=== PATIENT | female | born 1965 | race Caucasian/White ===

== ENCOUNTER 2017-05-16 05:24 | Day surgery (SDC) | payer BC ==
[2017-05-16 06:09] VITALS: BP 145/77; BMI 27.8
[2017-05-16 07:49] LABS: HEMATOCRIT 41.6 % (36.0-48.0); HEMOGLOBIN 13.9 g/dL (12-16); MCH 29.4 pg (26.0-34.0); MCHC 33.4 g/dL (31.0-37.0); MCV 88.1 fL (80.0-100.0); MEAN PLATELET VOLUME 9.8 fL (7.4-10.4); RBC 4.72 10x6/uL (4.00-5.40); RDW 13.2 % (11.5-14.5); WBC 5.1 10x3/uL (4.8-10.8)
--- NOTE | 2017-05-16 09:36 | NUR ---
0930--IV DC'D, PT UP TO DRESS AT THIS TIME WITH 'S ASSISTANCE. KELLI RN
--- NOTE | 2017-05-16 16:16 | NUR ---
0945--DISCHARGE INSTRUCTIONS GIVEN, PT VERBALZIES UNDERSTANDING. PT OFF UNIT VIA RICARDO. KELLI TABOR
--- NOTE | 2017-05-30 13:09 | OP ---
PATIENT NAME: EPI ALFONSO MEDICAL RECORD: [id number] :65 LOCATION:D.OPS ADMISSION DATE: SURGEON: AIDEN KLINE DPM DATE OF OPERATION: 05/16/2017 PREOPERATIVE DIAGNOSIS: Hallux abductovalgus, left foot. POSTOPERATIVE DIAGNOSIS: Hallux abductovalgus, left foot. PROCEDURE: Xavier bunionectomy, left foot with 0.062-inch K-wire fixation. ANESTHESIA: Local with IV sedation. HEMOSTASIS: Left ankle tourniquet at 250 mmHg. PREOPERATIVE DETAILS: The patient was taken to the OR, placed on the operating table in a supine position. This was followed by induction of sedation and infiltration of local anesthetic, approximately 15 cc total around the first ray of the left foot. The left extremity was then prepped and draped in the usual aseptic technique followed by exsanguination of extremity and inflation of tourniquet. A 15 blade was used to create a 4-cm linear incision over the dorsal aspect of the first ray, extended to the base of proximal phalanx of the hallux. The incision was deepened down through subcutaneous tissue being sure to preserve all vital structures. Dissection was carried down to the first MPJ where an inverted L capsulotomy was performed. The medial capsular flap was reflected and the head of the first metatarsal was delivered. A sagittal saw was used to resect the medial eminence. Attention was directed to the first interspace where a lateral release was performed. Attention was redirected to the medial aspect of the head of the first metatarsal where a sagittal saw was used to create a V osteotomy through and through. The capital fragment was translocated laterally and fixated with a 0.062-inch K-wire. The pin was cut. The medial redundant shelf was resected with the sagittal saw. The wound was flushed. The first MPJ was repaired with 2-0 Vicryl, the subcutaneous tissue with 5-0 Vicryl, and then the skin was closed with 5-0 Prolene in a subcuticular technique followed by Dermabond. Adaptic, 4 x 4 and Conform were used to dress the wound followed by Coban. Tourniquet was deflated. POSTOPERATIVE DETAILS: The patient tolerated the procedure well and left the OR with vital signs stable and vascular status at preoperative levels. The patient was transported to recovery per anesthesia in stable condition. TRANSINT:[id number] Voice Confirmation ID: [id number] DOCUMENT ID: [id number] AIDEN KLINE DPM at 1309 CC: [id number] DICTATION DATE: 05/16/17 0756 MARKETING STRATEGY MANAGER: 05/16/17 0821 [facility] [place] 05/16/17 [place] [id number] [place] [id number]
== END 2017-05-16 09:45 | disposition home or self-care (01) ==
LOC: D.OPS 05:24 → D.PAN 07:00 → D.OPS 07:00 → D.PAN 08:00 → D.OPS 08:00
PROVIDERS: Anesthesiology
DX: M20.12 Hallux valgus (acquired), left foot (principal); Z01.812 Encounter for preprocedural laboratory examination